=== PATIENT | female | born 1990 | race American Indian/Alaskan Native ===

== ENCOUNTER 2017-12-13 13:15 | Emergency (ER) | payer MEDICAID ==
[2017-12-13 13:29] VITALS: RESP 19; O2SAT 99
--- NOTE | 2017-12-13 13:38 | ED PDOC ---
Arrival/HPI - General Chief Complaint: Lower Extremity Problem/Injury Time Seen by Provider: 12/13/17 13:31 Historian: Patient EM Caveat: Acuity of Condition - History of Present Illness Narrative History of Present Illness (Text): 12/13/17 13:33 Pt is a 27 yr old f who c/o right foot pain after rolling her ankle while jumping rope yesterday. pt states she iced and elevated the foot for 2hrs last night; swelling and aching pain and inability to put full weight into the foot remains today. Denies loss of sensation, head trauma, LOC, loss of motor function of right leg and foot, or any other complaints. States foot pain relieved with rest (non-weightbearing) and worse when ambulating. Time/Duration: 24 hours Symptom Onset: Sudden Symptom Course: Unchanged Quality: Aching, Pressure Severity Level: 5 Activities at Onset: Rest Context: Home Past Medical History - Provider Review Nursing Documentation Reviewed: Yes - Travel History Have you recently traveled outside [place] w/in the past 3 mons?: No - Infectious Disease Hx of Infectious Diseases: None - Psychiatric Hx Substance Use: No - Anesthesia Hx Anesthesia: No Hx Anesthesia Reactions: No Hx Malignant Hyperthermia: No Family/Social History - Physician Review Nursing Documentation Reviewed: Yes Family/Social History: Unknown Family HX Smoking Status: Never Smoked Hx Alcohol Use: No Hx Substance Use: No Allergies/Home Meds Allergies/Adverse Reactions: Allergies No Known Allergies Allergy (Verified 12/13/17 13:29) Review of Systems - Review of Systems Systems not reviewed;Unavailable: Acuity of Condition Constitutional: Normal Eyes: Normal ENT: Normal Respiratory: Normal Cardiovascular: Normal Gastrointestinal: Normal Genitourinary Female: Normal Musculoskeletal: Normal, Joint Swelling (righ midfoot). absent: Arthralgias Skin: Normal Neurological: Normal Endocrine: Normal Hemo/Lymphatic: Normal Psychiatric: Normal Physical Exam Vital Signs Reviewed: Yes Vital Signs Temp Pulse Resp BP Pulse Ox 12/13/17 16:22 98.2 F 75 19 119/52 L 99 12/13/17 15:25 98 F 72 19 124/82 99 12/13/17 13:24 98.9 F 78 19 106/69 99 Temperature: Afebrile Blood Pressure: Normal Pulse: Regular Respiratory Rate: Normal Appearance: Positive for: Well-Appearing, Non-Toxic, Comfortable Pain Distress: Mild Mental Status: Positive for: Alert and Oriented X 3 - Systems Exam Head: Present: Atraumatic, Normocephalic Neck: Present: Normal Range of Motion Respiratory/Chest: Present: Clear to Auscultation, Good Air Exchange. No: Respiratory Distress, Accessory Muscle Use Cardiovascular: Present: Regular Rate and Rhythm, Normal S1, S2. No: Murmurs Abdomen: Present: Normal Bowel Sounds. No: Tenderness, Distention, Peritoneal Signs Back: Present: Normal Inspection Upper Extremity: Present: Normal Inspection. No: Cyanosis, Edema Lower Extremity: Present: Normal Inspection, NORMAL PULSES, Normal ROM (right foot and digits with limited active ROM), Tenderness (right midfootand lateal maleolus), Swelling (doral and lateral aspect right foot), Neurovascularly Intact, Capillary Refill < 2 s. No: Edema, CALF TENDERNESS, Cyanosis, Cristine's Sign, Erythema, Temperature Abnormalties Neurological: Present: GCS=15, CN II-XII Intact, Speech Normal, Motor Func Grossly Intact, Normal Sensory Function Skin: Present: Warm, Dry, Normal Color. No: Rashes Psychiatric: Present: Alert, Oriented x 3, Normal Insight, Normal Concentration Medical Decision Making ED Course and Treatment: 12/13/17 13:35 Impression Pt is a 27 yr old f who c/o right foot pain after rolling her ankle while jumping rope yesterday. On exam, neurovascularly intact bilateral LE, right foot and ankle motor 4/5 in plantarflexion and dorsiflexion, cap refill <2secs, SILT Plan imaging of right foot and ankle x 3 views assess and dispo Progress note 12/13/17 15:12 IMPRESSION: Acute fracture proximal aspect right 5th metatarsal. Major fracture fragments are anatomically aligned. Pt was splinted with posterior short leg splint by EMT and advised to f/u with orthopedist Thursday at Dr Rae office in [place] 12/13/17 16:05 Pt ambulated well with crutches VSS on d/c - RAD Interpretation Narrative RAD Interpretations (Text): 12/13/17 15:12 PROCEDURE: Right Foot Radiographs. HISTORY: Injury COMPARISON: None. FINDINGS: BONES: Nondisplaced fracture proximal right 5th metatarsal. The finding is marked on the study for review. JOINTS: Normal. SOFT TISSUES: Soft tissue swelling attests to the acuity of the fracture. OTHER FINDINGS: None. IMPRESSION: Acute fracture proximal aspect right 5th metatarsal. Major fracture fragments are anatomically aligned. Radiology Orders: 12/13/17 13:32 ANKLE RIGHT 3 VIEWS ROUTINE [RAD] Stat FOOT RIGHT 3 VIEWS ROUTINE [RAD] Stat Disposition/Present on Arrival - Present on Arrival Any Indicators Present on Arrival: Yes History of DVT/PE: No History of Uncontrolled Diabetes: No Urinary Catheter: No History of Decub. Ulcer: No History Surgical Site Infection Following: None - Disposition Have Diagnosis and Disposition been Completed?: Yes Diagnosis: Closed metaphyseal fracture of fifth metatarsal bone of right foot Disposition: HOME/ ROUTINE Disposition Time: 15:14 Patient Plan: Discharge Condition: STABLE Discharge Instructions (ExitCare): Foot Fracture (DC) Additional Instructions: MATTHEW ECHEVERRIA, thank you for letting us take care of you today. Your provider was Rojelio Rehman MD and you were treated for a RIGHT FOOT FRACTURE. The emergency medical care you received today was directed at your acute symptoms. If you were prescribed any medication, please fill it and take as directed. It may take several days for your symptoms to resolve. Return to the Emergency Department if your symptoms worsen, do not improve, or if you have any other problems. PLEASE SEE DR. RAE IN THE OFFICE ON THURSDAY FOR FURTHER EVALUATION Please contact your doctor or call one of the physicians/clinics you have been referred to that are listed on the Patient Visit Information form that is included in your discharge packet. Bring any paperwork you were given at discharge with you along with any medications you are taking to your follow up visit. Our treatment cannot replace ongoing medical care by a primary care provider outside of the emergency department. Thank you for allowing the [facility] team to be part of your care today. If you had an X-Ray or CT scan: A Radiologist will review the ED reading if any change in treatment is needed we will contact you. Prescriptions: Ibuprofen [Motrin Tab] 600 mg PO Q6 PRN 5 Days #20 tab PRN Reason: pain/fever Referrals: Steve Bishop MD [Primary Care Provider] - Follow up with primary Morgan Rae III, MD [Medical Doctor] - Follow up with primary Forms: [employer] ([place]), WORK NOTE
--- NOTE | 2017-12-13 15:10 | RAD ---
PROCEDURE: Right Foot Radiographs. HISTORY: Injury COMPARISON: None. FINDINGS: BONES: Nondisplaced fracture proximal right 5th metatarsal. The finding is marked on the study for review. JOINTS: Normal. SOFT TISSUES: Soft tissue swelling attests to the acuity of the fracture. OTHER FINDINGS: None. IMPRESSION: Acute fracture proximal aspect right 5th metatarsal. Major fracture fragments are anatomically aligned.
--- NOTE | 2017-12-13 15:13 | RAD ---
PROCEDURE: Right Ankle Radiographs. HISTORY: Injury COMPARISON: December 13, 2017. Right foot reported separately FINDINGS: BONES: Known fracture of the 5th metatarsal. No evidence of distal tibial, fibular fracture. Talus calcaneus and visualized tarsal bones unremarkable. JOINTS: Normal. No osteoarthritis. Ankle mortise maintained. Talar dome intact SOFT TISSUES: Normal. OTHER FINDINGS: None. IMPRESSION: No acute ankle abnormalities.
[2017-12-13 16:23] VITALS: BP 119/52; PULSE 75; TEMP 98.2
== END 2017-12-13 16:22 | disposition home or self-care (01) ==
LOC: MERGE 13:15 → ED 13:15
DX: S92.351A Displaced fracture of fifth metatarsal bone, right foot, initial encounter for closed fracture (principal); Y93.56 Activity, jumping rope